=== PATIENT | male | born 1990 | race Caucasian/White ===

== ENCOUNTER 2016-12-19 01:35 | Emergency (ER) | payer SELFPAY ==
[~2016-12-19] VITALS: Ht 185.4 cm; Wt 69.1 kg
[2016-12-19 02:19] LABS: HEMATOCRIT 44.4 % (38.0-50.0); MCH 29.8 PG (29.0-34.0); MCHC 34.7 G/DL (30.0-36.0); MCV 85.9 FL (86-99); MEAN PLAT.VOLUME 9.7 uM^3 (9.0-12.4); PLATELET COUNT 255 K/uL (156-360); RBC DIS.WIDTH-CV 11.3 % (11.8-14.6); RED BLOOD COUNT 5.17 M/uL (4.00-5.50); WHITE BLOOD COUNT 7.6 K/uL (4.1-10.2)
[2016-12-19 02:28] LABS: CHLORIDE 101 mEq/L (99-109); POTASSIUM 3.6 mEq/L (3.7-5.4); SODIUM 140 mEq/L (136-147)
[2016-12-19 02:30] LABS: GLUCOSE 99 mg/dL (70-99)
[2016-12-19 02:31] LABS: ANION GAP 11 MEQ/L (2-14)
[2016-12-19 02:32] LABS: TOTAL BILIRUBIN 0.4 mg/dL (0.0-1.0)
[2016-12-19 02:33] LABS: SERUM ETHYL ALCOHOL < 10 mg/dL
[2016-12-19 02:34] LABS: ALKALINE PHOSPHATASE 109 IU/L (3-129); GFR ESTIMATE (CALCULATED) > 59 mL/min/
[2016-12-19 02:36] LABS: UREA NITROGEN (BUN) 16 mg/dL (9-23)
[2016-12-19 02:37] LABS: SALICYLATE < 5.0 MG/DL (15-30)
[2016-12-19 02:54] VITALS: BP 148/88
== END 2016-12-19 02:55 ==
LOC: EME 01:35
PROVIDERS: Emergency Medicine
DX: T42.4X1A Poisoning by benzodiazepines, accidental (unintentional), initial encounter (principal); F13.10 Sedative, hypnotic or anxiolytic abuse, uncomplicated; F17.200 Nicotine dependence, unspecified, uncomplicated
CPT/HCPCS: 80053; 81003; 85027; 99281; 99284; G0480; J7030